=== PATIENT | female | born 1945 | race Caucasian/White ===

== ENCOUNTER 2016-08-04 11:05 | Emergency (ER) | payer MEDICARE, OTHER | END 2016-08-04 14:50 | disposition home or self-care (01) | LOC: D.ER 11:05 | DX: S49.91XA Unspecified injury of right shoulder and upper arm, initial encounter (principal); W01.0XXA Fall on same level from slipping, tripping and stumbling without subsequent striking against object, initial encounter; Y93.89 Activity, other specified; Y92.481 Parking lot as the place of occurrence of the external cause; I10 Essential (primary) hypertension ==

== ENCOUNTER → 2017-10-25 10:31 | Outpatient (CLI) | payer MEDICARE, OTHER | END | disposition home or self-care (01) | LOC: D.MAMMO 10:31 | DX: Z12.31 Encounter for screening mammogram for malignant neoplasm of breast (principal) ==

== ENCOUNTER 2019-08-26 05:07 | Inpatient (IN) | payer MEDICARE, OTHER ==
[~2019-08-26] VITALS: Ht 157.5 cm; Wt 63.5 kg
--- NOTE | ~2019-08-26 | EC ---
PATIENT:VINCENZO MOORE DATE OF SERVICE: 08/26/19 SEX: F MEDICAL RECORD: [id number] DATE OF : [birth year] LOCATION:D.MS Wing221 AGE OF PATIENT: 74 ADMISSION DATE: 08/26/19 REFERRING PHYSICIAN: INTERPRETING PHYSICIAN: SHERRI NICK MD ECHOCARDIOGRAM REPORT ECHO CHARGES 4 ECHO COMPLETE Date: 08/27/19 CLINICAL DIAGNOSIS: LVH ECHOCARDIOGRAPHIC MEASUREMENTS (adult normal given) AC root (d.<3.7cm) 3.0 cm LV Septum d (<1.2 cm> 1.0 cm Valve Excursion 1.7 cm LV Septum (systole) 1.1 cm Left Atria (s.<4.0cm> 3.8 cm LVPW d(<1.2cm) 1.1 cm RV (d.<2.3cm) 2.7 cm LVPW (sytole) 1.5 cm LV diastole(<5.6CM) 5.0 cm MV E-F(>70mm/sec) cm LV systole 3.6 cm LVOT Diameter 2.1 cm MV exc.(>10mm) cm Est.ejection fraction (50-75%) % DOPPLER: LVIT cm/sec A 113 cm/sec E 123 cm/sec LA cm/sec RVSP 33.7 mmHg LVOT 100 cm/sec AOP1/2T m/s Asc. Ao 151 cm/sec RVOT 62 cm/sec RA cm/sec PA 89 cm/sec AV Gradient Peak 9.1 mmHg AV Mean 5.5 mmHg AV Area 2.6 cm MV Gradient Peak 7.9 mmHg MV Mean 3.8 mmHg MV Area cm COMMENTS: Poultry Husbandry Teacher: Evaristo [facility] Potato Chip Frier: 1 Dr. Nick TAPE# PACS Pericardial Effusion N DATE OF SERVICE: FINDINGS: 1. Left ventricular chamber size is within normal limits. Left ventricular systolic function is lower limits of normal at 45% to 50%. 2. Left atrium, right atrium, and right ventricle chamber sizes are within normal limits. 3. Valvular structures have normal structure and motion. 4. Doppler interrogation reveals only trace tricuspid regurgitation, no other valvular insufficiency or stenosis. ECHOCARDIOGRAM REPORT [id number] VINCENZO MOORE 5. No evidence of pericardial effusion or left ventricular thrombus. TRANSINT:[id number] Voice Confirmation ID: [id number] DOCUMENT ID: [id number] SHERRI NICK MD CC: [id number] DICTATION DATE: 08/27/19 1607 STRAIGHT LINE PRESS SETTER: 08/27/19 1909 ADM IN [place] [id number] [place] [id number]
[2019-08-26] MEDS ORDERED: CRESTOR10 MG PO (05:14)
[2019-08-26] MEDS ORDERED: COREG25 MG PO (05:15)
[2019-08-26] MEDS ORDERED: NORVASC5 MG PO (05:15)
[2019-08-26] MEDS ORDERED: PROTONIX40 MG PO (05:15)
[2019-08-26 05:26] LABS: BILIRUBIN NEGATIVE (NEGATIVE); GLUCOSE NEGATIVE (NEGATIVE); KETONE NEGATIVE (NEGATIVE); NITRITE NEGATIVE (NEGATIVE); UROBILINOGEN 4 mg/dL (NORMAL)
[2019-08-26 05:28] LABS: HEMATOCRIT 33.5 % (36.0-48.0); HEMOGLOBIN 10.6 g/dL (12-16); MCH 29.4 pg (26.0-34.0); MCHC 31.6 g/dL (31.0-37.0); MCV 92.8 fL (80.0-100.0); MEAN PLATELET VOLUME 11.9 fL (7.4-10.4); PLATELET COUNT 173 10x3/uL (130-400); RBC 3.61 10x6/uL (4.00-5.40); RDW 14.3 % (11.5-14.5); WBC 8.8 10x3/uL (4.8-10.8)
[2019-08-26 05:35] LABS: CALC OSMOLALITY 282 mosm/kg (275-300); CALCIUM 8.5 mg/dL (8.5-10.1); CARBON DIOXIDE 23.2 mmol/L (21.0-32.0); CHLORIDE - SERUM 106 mmol/L (98-107); CREATININE - SERUM 1.4 mg/dL (0.6-1.3); GLUCOSE 109 mg/dL (74-106); POTASSIUM - SERUM 3.5 mmol/L (3.5-5.1); SODIUM 139 mmol/L (136-145); UREA NITROGEN 24 mg/dL (7-18); eGFR NON AFRICAN AMERICAN 39 mL/min (90-120)
[2019-08-26 05:52] LABS: ALBUMIN 2.7 g/dL (3.4-5.0); ALKALINE PHOSPHATASE 70 U/L (30-120); ALT (SGPT) 15 U/L (10-68); BILIRUBIN - TOTAL 0.58 mg/dL (0.2-1.3); CKMB 0.4 U/L (0.0-3.6); CREATINE KINASE 51 UL (21-215); TROPONIN-I < 0.017 ng/mL (0.000-0.060)
[2019-08-26 06:05] LABS: INR 1.37 (0.85-1.17); PROTIME 16.7 SECONDS (11.6-15.0)
[2019-08-26 06:29] VITALS: BP 99/50
[2019-08-26 07:09] LABS: LYMPHOCYTES 6 % (15-50); MONOCYTES 5 % (2-11); NEUTROPHILS 81 % (40-80); PLATELET ESTIMATE NORMAL
[2019-08-26 07:59] VITALS: BP 93/51; BMI 25.6
[2019-08-26 09:52] VITALS: BP 86/47
[2019-08-26 11:53] LABS: % SATURATION 4 % (15-55); IRON 7 ug/dl (35-150); TOTAL IRON BIND CAPACITY 163 ug/dl (260-445); UNSAT IRON BIND CAPACITY 156 ug/dl (150-375)
[2019-08-26 14:24] VITALS: BP 101/58
[2019-08-26 16:56] VITALS: BP 126/63
--- NOTE | 2019-08-26 19:15 | NUR ---
PATIENT ALERT AND ORIENTED TALKING ON CELL PHONE WHEN DOING BEDSIDE ROUNDING. PATIENT DENIES NEEDS AT THIS TIME. CURRENTLY WEARING 3L NC. RIGHT FOREARM IV THAT IS INFUSING NS @ 130 ML PER HOUR PER ORDER. INSTRUCTED PATIENT ON NEED OF STOOL AND SPUTUM SAMPLE. PATIENT VERBALIZES UNDERSTANDING. CALL LIGHT REMAINS IN REACH. CPOC.
[2019-08-26 20:00] VITALS: BP 103/49
--- NOTE | 2019-08-26 20:05 | NUR ---
ANSWERED PATIENT CALL LIGHT. PATIENT COMPLAINING OF HEADACHE AND RIGHT LOWER LOBE CHEST PAIN. REQUESTS TYLENOL. PROVIDED. PATIENT TOLERATED WELL. CPOC.
--- NOTE | 2019-08-26 23:00 | NUR ---
I have reviewed this patient and I concur with the Shift Assessment completed by the Licensed Practical Nurse today this shift.
--- NOTE | 2019-08-26 23:05 | NUR ---
REPLACED TELE LEADS. PATIENT BROKE SWEAT IN NIGHT AND LEADS OUT OF PLACE. REPLACED.
[2019-08-27] VITALS: BP 108/56
[2019-08-27 06:44] LABS: BASOPHILS 0.1 % (0-2); HEMATOCRIT 30.3 % (36.0-48.0); HEMOGLOBIN 9.5 g/dL (12-16); IMMATURE GRANULOCYTES 0.3 % (0-5); LYMPHOCYTES 13.1 % (15-50); MCH 29.4 pg (26.0-34.0); MCHC 31.4 g/dL (31.0-37.0); MCV 93.8 fL (80.0-100.0); MEAN PLATELET VOLUME 12.2 fL (7.4-10.4); MONOCYTES 12.9 % (2-11); NEUTROPHILS 71.6 % (40-80); PLATELET COUNT 175 10x3/uL (130-400); RBC 3.23 10x6/uL (4.00-5.40); RDW 14.7 % (11.5-14.5); WBC 7.5 10x3/uL (4.8-10.8)
[2019-08-27 06:58] LABS: ANION GAP 11.4 mmol/L (8-16); CALCIUM 8.7 mg/dL (8.5-10.1); CREATININE - SERUM 0.9 mg/dL (0.6-1.3); POTASSIUM - SERUM 3.4 mmol/L (3.5-5.1)
[2019-08-27 08:38] VITALS: BP 125/77
--- NOTE | 2019-08-27 08:50 | NUR ---
STILL COUGHING UP THICK SPUTUM, 3 LITERS NC. C/O OF LITTLE PAIN TO THE LEFT ABD SIDE. ASKING ABOUT STARTING HER HOME MEDS?
[2019-08-27 12:33] VITALS: BP 129/73
[2019-08-27 12:40] LABS: CKMB 0.3 U/L (0.0-3.6); CREATINE KINASE 47 UL (21-215)
[2019-08-27 12:41] LABS: TROPONIN-I < 0.017 ng/mL (0.000-0.060)
[2019-08-27 17:07] VITALS: BP 121/64
--- NOTE | 2019-08-27 17:58 | NUR ---
SHE IS STILL HAVING PAIN TO THE LEFT SIDE OF CHEST. SHE IS COUGHING ALOT. SHE IS TAKING TYLENOL FOR PAIN.
[2019-08-27 19:04] LABS: CKMB 0.8 U/L (0.0-3.6); CREATINE KINASE 45 UL (21-215)
[2019-08-27 19:05] LABS: TROPONIN-I < 0.017 ng/mL (0.000-0.060)
[2019-08-27 20:00] VITALS: BP 125/70
[2019-08-27 23:46] LABS: CKMB 0.6 U/L (0.0-3.6); CREATINE KINASE 45 UL (21-215); TROPONIN-I < 0.017 ng/mL (0.000-0.060)
[2019-08-28] VITALS: BP 109/66; BP 135/77
--- NOTE | 2019-08-28 01:50 | NUR ---
I have reviewed this patient and I concur with the Shift Assessment completed by the Licensed Practical Nurse today this shift.
[2019-08-28 04:00] VITALS: BP 140/80
[2019-08-28 05:28] LABS: CALCIUM 8.4 mg/dL (8.5-10.1); CREATININE - SERUM 0.8 mg/dL (0.6-1.3)
[2019-08-28 06:12] LABS: HEMATOCRIT 30.4 % (36.0-48.0); HEMOGLOBIN 9.3 g/dL (12-16); MCH 29.3 pg (26.0-34.0); MCHC 30.6 g/dL (31.0-37.0); PLATELET COUNT 186 10x3/uL (130-400); RBC 3.17 10x6/uL (4.00-5.40); RDW 15.4 % (11.5-14.5); WBC 7.8 10x3/uL (4.8-10.8)
[2019-08-28 06:14] LABS: MCV 95.9 fL (80.0-100.0)
--- NOTE | 2019-08-28 08:38 | NUR ---
PATIENT IS SETTING UP IN THE CHAIR TO EAT. C/O OF PAIN IN HER LEFT SIDE AREA. PRN TYLENOL GIVEN. WEARING OXYGEN AT 3 LITERS. REMINDERED HER THAT WE NEED A STOOL SPECIMEN.
[2019-08-28 08:47] LABS: EOSINOPHILS 1 % (0-7); LYMPHOCYTES 15 % (15-50); MONOCYTES 5 % (2-11); NEUTROPHILS 69 % (40-80)
[2019-08-28 08:49] LABS: PLATELET ESTIMATE NORMAL
[2019-08-28 08:56] VITALS: BP 154/87
[2019-08-28 13:01] VITALS: Ht 157.5 cm; Wt 63.5 kg
[2019-08-28 13:24] VITALS: BP 140/79
[2019-08-28 17:28] VITALS: BP 157/82
--- NOTE | 2019-08-28 19:45 | NUR ---
A&O X 4. AMBULATES AD EL. FAMILY AT BEDSIDE. REPORTS MILD PAIN 2-3/10 PAIN TO CHEST/BACK. CONTINUE PLAN OF CARE.
[2019-08-28 20:00] VITALS: BP 125/69
[2019-08-29 04:00] VITALS: BP 170/95
--- NOTE | 2019-08-29 05:43 | NUR ---
I have reviewed this patient and I concur with the Shift Assessment completed by the Licensed Practical Nurse today this shift.
[2019-08-29 05:55] LABS: BASOPHILS 0.1 % (0-2); EOSINOPHILS 2.6 % (0-7); HEMATOCRIT 32.1 % (36.0-48.0); HEMOGLOBIN 9.9 g/dL (12-16); IMMATURE GRANULOCYTES 0.4 % (0-5); LYMPHOCYTES 8.2 % (15-50); MCH 28.4 pg (26.0-34.0); MCHC 30.8 g/dL (31.0-37.0); MEAN PLATELET VOLUME 11.7 fL (7.4-10.4); MONOCYTES 9.2 % (2-11); NEUTROPHILS 79.5 % (40-80); RBC 3.48 10x6/uL (4.00-5.40); RDW 14.8 % (11.5-14.5); WBC 9.5 10x3/uL (4.8-10.8)
[2019-08-29 06:19] LABS: MCV 92.2 fL (80.0-100.0); PLATELET COUNT 234 10x3/uL (130-400)
[2019-08-29 06:34] LABS: ANION GAP 15.9 mmol/L (8-16); CARBON DIOXIDE 21.7 mmol/L (21.0-32.0); CREATININE - SERUM 0.8 mg/dL (0.6-1.3); POTASSIUM - SERUM 3.6 mmol/L (3.5-5.1)
[2019-08-29 06:48] LABS: CALCIUM 8.9 mg/dL (8.5-10.1)
--- NOTE | 2019-08-29 08:14 | NUR ---
PATIENT RECIEVED FROM PREVIOUS SHIFT RESTING WITH EYES CLOSED, AROUSES EASILY, ALERT AND ORIENTED. RESPIRTATIONS REGULAR AND NON-LABORED, 02 3L NC, CL IN REACH
[2019-08-29 10:07] VITALS: BP 159/86
--- NOTE | 2019-08-29 13:22 | MORECARE ---
CASE MANAGEMENT DISCHARGE SUMMARY PATIENT: VINCENZO MOORE UNIT: [id number] ADM DATE: 08/26/19 AGE: 74 : 46 SEX: F ROOM/BED: D.2210 AUTHOR: CHAYA BRADLEY PHYSICIAN: REFERRING PHYSICIAN: SHELTON MACK MD DATE OF SERVICE: 08/29/19 Discharge Plan Patient Name: VINCENZO MOORE [facility] [facility] 1945 Planned Disposition: Home or Self Care Anticipated Discharge Date: Discharge Date: Expected LOS: Initial Reviewer: [email or web address] Initial Review Date: 08/26/2019 Generated: 08/29/19 2:21 pm DCPIA - Discharge Planning Initial Assessment Updated by [email or web address]: Nadia Lloyd on 08/29/19 1:21 pm * Is the patient Alert and Oriented? Yes * How many steps to enter\exit or inside your home? * PCP DEMETRIUS * Pharmacy [address] * Preadmission Environment Home with Family * ADLs Independent * Equipment None * List name and contact numbers for known caregivers / representatives who currently or will assist patient after discharge: MATTHIAS MOORE [phone] * Verbal permission to speak to the caregivers and representatives has been obtained from the patient. N/A * Community resources currently utilized None * Additional services required to return to the preadmission environment? No * Can the patient safely return to the preadmission environment? Yes * Has this patient been hospitalized within the prior 30 days at any hospital? No Patient Name: VINCENZO MOORE Page [phone] at 1322 All edits/amendments must be made on the electronic document DICTATION DATE: 08/29/19 1321 BRAND COORDINATOR: LAURY 08/29/19 1321 RPT#: [id number] DC DATE: STATUS: ADM IN [facility] [address] [place] [address] END OF REPORT
--- NOTE | 2019-08-29 13:31 | MORECARE ---
CASE MANAGEMENT DISCHARGE SUMMARY PATIENT: VINCENZO MOORE UNIT: [id number] ADM DATE: 08/26/19 AGE: 74 : 46 SEX: F ROOM/BED: D.2210 AUTHOR: MIRNADOC PHYSICIAN: REFERRING PHYSICIAN: SHELTON MACK MD DATE OF SERVICE: 08/29/19 Discharge Plan Patient Name: VINCENZO MOORE Facility: [facility]:[place] : 1945 Planned Disposition: Home or Self Care Anticipated Discharge Date: Discharge Date: Expected LOS: Initial Reviewer: [email or web address] Initial Review Date: 08/26/2019 Generated: 08/29/19 2:31 pm Comments DCP- Discharge Planning Updated by [email or web address]: Nadia Lloyd on 08/29/19 12:[address] Patient Name: VINCENZO MOORE Admission Status: ER Accout number: [id number] Admission Date: 08-26-2019 : 1945 Admission Diagnosis: Attending: SHIVAM MACK Current LOS: 3 Anticipated DC Date: Planned Disposition: Home or Self Care Primary Insurance: MEDICARE A & B Discharge Planning Comments: CM met with patient to complete initial dc planning assessment. CM educated patient on the CM role and verbal consent given by patient to complete assessment. Patient lives at home with her where she is independent with her care. At discharge patient plans to return home and feels this is a safe discharge. One of her family members will be her cement truck driver home at discharge. CM discussed availability of home health, rehab services, and medical equipment. Patient denied known discharge needs at this time. CM will continue to follow and will assist as needed with dc plans/needs. Inspector Missile: Nadia Lloyd DCPIA - Discharge Planning Initial Assessment Updated by [email or web address]: Nadia Lloyd on 08/29/19 1:21 pm * Is the patient Alert and Oriented? Yes * How many steps to enter\exit or inside your home? * PCP DEMETRIUS * Pharmacy [address] * Preadmission Environment Home with Family * ADLs Independent * Equipment None * List name and contact numbers for known caregivers / representatives who currently or will assist patient after discharge: MATTHIAS MOORE [phone] * Verbal permission to speak to the caregivers and representatives has been obtained from the patient. N/A * Community resources currently utilized None * Additional services required to return to the preadmission environment? No * Can the patient safely return to the preadmission environment? Yes * Has this patient been hospitalized within the prior 30 days at any hospital? No Last DP export: 08/29/19 12:22 p Patient Name: VINCENZO MOORE Page [phone] at 1331 All edits/amendments must be made on the electronic document DICTATION DATE: 08/29/191330 FERMENTING CELLARS SUPERVISOR: LAURY 08/29/191330 RPT#: [id number] DC DATE: STATUS: ADM IN [facility] [address] [place] [address] END OF REPORT
[2019-08-29 14:39] VITALS: BP 148/90
[2019-08-29 17:25] VITALS: BP 158/94
--- NOTE | 2019-08-29 18:55 | NUR ---
PATIENT RESTING WITH NO NEEDS VOICED, CL IN REACH
--- NOTE | 2019-08-29 19:40 | NUR ---
SUPINE IN BED, A&O X 4. FAMILY AT BEDSIDE. 3L O2 IN USE. DENIES PAIN/DISCOMFORT/NEEDS AT THIS TIME, WILL CONTINUE TO MONITOR.
[2019-08-29 21:28] VITALS: BP 149/93
[2019-08-30 01:59] VITALS: BP 151/83
[2019-08-30 04:41] LABS: BASOPHILS 0.1 % (0-2); EOSINOPHILS 2.7 % (0-7); HEMATOCRIT 32.8 % (36.0-48.0); HEMOGLOBIN 10.3 g/dL (12-16); IMMATURE GRANULOCYTES 0.3 % (0-5); LYMPHOCYTES 14.1 % (15-50); MCH 28.8 pg (26.0-34.0); MCHC 31.4 g/dL (31.0-37.0); MCV 91.6 fL (80.0-100.0); MEAN PLATELET VOLUME 10.4 fL (7.4-10.4); NEUTROPHILS 71.8 % (40-80); PLATELET COUNT 279 10x3/uL (130-400); RBC 3.58 10x6/uL (4.00-5.40); RDW 14.7 % (11.5-14.5); WBC 7.1 10x3/uL (4.8-10.8)
[2019-08-30 04:52] LABS: CALC OSMOLALITY 275 mosm/kg (275-300); CALCIUM 9.1 mg/dL (8.5-10.1); CARBON DIOXIDE 25.4 mmol/L (21.0-32.0); CHLORIDE - SERUM 104 mmol/L (98-107); CREATININE - SERUM 0.6 mg/dL (0.6-1.3); GLUCOSE 84 mg/dL (74-106); POTASSIUM - SERUM 3.5 mmol/L (3.5-5.1); SODIUM 140 mmol/L (136-145); UREA NITROGEN 6 mg/dL (7-18); eGFR NON AFRICAN AMERICAN > 90 mL/min (90-120)
--- NOTE | 2019-08-30 05:11 | NUR ---
I have reviewed this patient and I concur with the Shift Assessment completed by the Licensed Practical Nurse today this shift.
[2019-08-30 06:04] VITALS: BP 130/66
[2019-08-30 08:00] VITALS: BP 169/91
--- NOTE | 2019-08-30 08:00 | NUR ---
ASSESSMENT PER FLOW SHEET. PT IS WITHOUT DISTRESS.FAMILY AT BEDSIDE.CALL LIGHT IN REACH.
--- NOTE | 2019-08-30 08:14 | NUR ---
STOOL TO LAB ORDERED
[2019-08-30 10:00] LABS: MAGNESIUM - SERUM 1.9 mg/dL (1.8-2.4); POTASSIUM - SERUM 3.7 mmol/L (3.5-5.1)
[2019-08-30 12:00] VITALS: BP 145/74
--- NOTE | 2019-08-30 13:06 | NUR ---
NUTRITION F/U CHART REVIEWED, PT VISIT. TOLERATING AHA DIET WITH 50% INTAKE RECENT MEALS. WILL CONTINUE TO PROVIDE DIET, MONITOR PO INTAKE. RD FOLLOWING
[2019-08-30 17:09] VITALS: BP 145/80
--- NOTE | 2019-08-30 19:30 | NUR ---
A&O X 4. REPORTS PAIN 12/28. DENIES N/V/D. NO NEEDS AT THIS TIME. REMOVED PT FROM IV AND MONITOR FOR SHOWER. WILL CONTINUE TO MONITOR.
--- NOTE | 2019-08-30 19:45 | NUR ---
A&O X 4. SUPINE IN BED, STATES SHE IS FEELING MUCH BETTER TODAY. STILL UNABLE TO PRODUCE SPUTUM. DENIES PAIN CURRENTLY, BUT REPORTS SORE/ACHING FEELING IN HER BACK AND CHEST AND SHOULDERS. WILL CONTINUE TO MONITOR.
[2019-08-30 21:09] VITALS: BP 135/70
[2019-08-31] VITALS (7 sets, daily range): BP systolic 146–167; BP diastolic 67–93
[2019-08-31 06:21] LABS: BASOPHILS 0.2 % (0-2); EOSINOPHILS 3.8 % (0-7); HEMATOCRIT 32.5 % (36.0-48.0); HEMOGLOBIN 10.3 g/dL (12-16); IMMATURE GRANULOCYTES 0.5 % (0-5); MCH 28.9 pg (26.0-34.0); MCHC 31.7 g/dL (31.0-37.0); MCV 91.3 fL (80.0-100.0); MEAN PLATELET VOLUME 10.5 fL (7.4-10.4); MONOCYTES 7.8 % (2-11); NEUTROPHILS 70.7 % (40-80); PLATELET COUNT 314 10x3/uL (130-400); RBC 3.56 10x6/uL (4.00-5.40); RDW 14.7 % (11.5-14.5); WBC 6.3 10x3/uL (4.8-10.8)
[2019-08-31 06:45] LABS: CALC OSMOLALITY 276 mosm/kg (275-300); CALCIUM 9.3 mg/dL (8.5-10.1); CARBON DIOXIDE 30.2 mmol/L (21.0-32.0); CHLORIDE - SERUM 104 mmol/L (98-107); CREATININE - SERUM 0.7 mg/dL (0.6-1.3); GLUCOSE 100 mg/dL (74-106); POTASSIUM - SERUM 3.6 mmol/L (3.5-5.1); PRO BNP 3389 pg/mL (0-125); SODIUM 140 mmol/L (136-145); eGFR NON AFRICAN AMERICAN 87 mL/min (90-120)
[2019-08-31 06:46] LABS: UREA NITROGEN 8 mg/dL (7-18)
--- NOTE | 2019-08-31 08:00 | NUR ---
ASSESSMENT PER FLOW SHEET. PT IS WITHOUT DISTRESS.MONITOR FOR NEEDSD
--- NOTE | 2019-08-31 18:00 | NUR ---
IV RESITED TO RIGHT FOREARM. IV X2 DCD WITH CATH TIP INTACT.2 PREVIOUS IV WOULD NOT FLUSH
--- NOTE | 2019-08-31 19:55 | NUR ---
SITTING UP IN CHAIR TALKING TO FAMILY. ALERT AND ORIENTED X4. TELEMETRY SHOWS SR WITH RATE OF 81. RESP IRREG, SOB WITH MIN EXERTION. NONPROD COUGH NOTED. O2 @ 2L/NC. AMBULATORY. REPORTS BACK PAIN AND H/A. SALINE LOCK NOTED TO RT FOREARM. NO EDEMA NOTED. NO DISTRESS. CL IN REACH.
--- NOTE | 2019-09-01 01:55 | NUR ---
LYING IN BED WITH EYES CLOSED. RESP EVEN AND NONLABORED. NO DISTRESS. CL INR EACH. HAS RESTED WELL SO FAR THIS SHIFT.
[2019-09-01 04:00] VITALS: BP 149/78
[2019-09-01 04:45] LABS: BASOPHILS 0.3 % (0-2); EOSINOPHILS 3.4 % (0-7); HEMATOCRIT 34.3 % (36.0-48.0); HEMOGLOBIN 10.9 g/dL (12-16); IMMATURE GRANULOCYTES 0.6 % (0-5); LYMPHOCYTES 22.7 % (15-50); MCH 29.1 pg (26.0-34.0); MCHC 31.8 g/dL (31.0-37.0); MCV 91.5 fL (80.0-100.0); MEAN PLATELET VOLUME 10.1 fL (7.4-10.4); PLATELET COUNT 358 10x3/uL (130-400); RBC 3.75 10x6/uL (4.00-5.40); RDW 14.7 % (11.5-14.5); WBC 6.5 10x3/uL (4.8-10.8)
[2019-09-01 05:06] LABS: ANION GAP 9.8 mmol/L (8-16); CALCIUM 9.2 mg/dL (8.5-10.1); CARBON DIOXIDE 30.9 mmol/L (21.0-32.0); CREATININE - SERUM 0.8 mg/dL (0.6-1.3); POTASSIUM - SERUM 3.7 mmol/L (3.5-5.1)
--- NOTE | 2019-09-01 07:21 | NUR ---
PT IS RESTING IN BED WITH EYES OPEN. RESPIRATIONS ARE EVEN AND UNLABORED. O2 @ 2L VIA NC. PT DENIES PRESENCE OF DYSPNEA AT THIS TIME BUT REPORTS SOB WITH MINIMAL EXERTION. INCENTIVE SPIROMETER AT BEDSIDE. APPROPRIATE RETURN DEMONSTRATION NOTED. PT IS AAO X 4. PT REPORTS A FREQUENT DRY COUGH. BED IS IN THE LOWEST POSITION. CALL LIGHT AND BEDSIDE TABLE ARE WITHIN REACH. SIDE RAILS X 2. PT DENIES FURTHER NEEDS AT THIS TIME. WILL CONT TO MONITOR.
[2019-09-01 08:57] VITALS: BP 144/81
--- NOTE | 2019-09-01 10:05 | NUR ---
DR BENAVIDES AT BEDSIDE. VERBAL ORDERS TO WEAN PT OFF O2. PT REMOVED NC AND WILL CHECK O2 SAT PERIODICALLY. DR BENAVIDES STATES FOR PT O2 SAT TO REMAIN 92% OR >.
--- NOTE | 2019-09-01 10:35 | NUR ---
PT O2 SAT @ 91% RA. PT ENCOURAGED TO COUGH AND DEEP BREATH. O2 SAT INCREASED TO 94% ON RA.
--- NOTE | 2019-09-01 11:05 | NUR ---
PT O2 SAT @ 89% ON ROOM AIR. PT ENCOURAGED TO DEEP BREATH AND COUGH. INCENTIVE AT BEDSIDE. PT O2 PLACED ON AT 1L VIA NC. O2 SAT @ 93%. WILL CONT TO ATTEMPT O2 WEANING.
[2019-09-01 12:48] VITALS: BP 145/74
[2019-09-01 13:48] VITALS: BP 151/90
[2019-09-01 20:00] VITALS: BP 126/64
[2019-09-02] VITALS: BP 107/73; BP 140/76
[2019-09-02 04:00] VITALS: BP 153/85
[2019-09-02 06:11] LABS: BASOPHILS 0.3 % (0-2); EOSINOPHILS 2.9 % (0-7); HEMATOCRIT 33.1 % (36.0-48.0); HEMOGLOBIN 10.5 g/dL (12-16); IMMATURE GRANULOCYTES 0.2 % (0-5); LYMPHOCYTES 20.8 % (15-50); MCH 28.9 pg (26.0-34.0); MCHC 31.7 g/dL (31.0-37.0); MCV 91.2 fL (80.0-100.0); MEAN PLATELET VOLUME 9.8 fL (7.4-10.4); MONOCYTES 6.8 % (2-11); PLATELET COUNT 357 10x3/uL (130-400); RBC 3.63 10x6/uL (4.00-5.40); RDW 14.5 % (11.5-14.5); WBC 6.3 10x3/uL (4.8-10.8)
[2019-09-02 06:23] LABS: CALC OSMOLALITY 278 mosm/kg (275-300); CALCIUM 8.9 mg/dL (8.5-10.1); CARBON DIOXIDE 30.8 mmol/L (21.0-32.0); CHLORIDE - SERUM 103 mmol/L (98-107); CREATININE - SERUM 0.7 mg/dL (0.6-1.3); GLUCOSE 101 mg/dL (74-106); POTASSIUM - SERUM 3.8 mmol/L (3.5-5.1); SODIUM 141 mmol/L (136-145); UREA NITROGEN 7 mg/dL (7-18); eGFR NON AFRICAN AMERICAN 87 mL/min (90-120)
--- NOTE | 2019-09-02 08:00 | NUR ---
PT RESTING IN BED WITH EYES CLOSED, EASILY AROUSED TO SPEECH. IV LOCATED TO RIGHT FOREARM RUNNING NS @ 10ML/HR. CURRENTLY RCVING 1L VIA NC. NO S/S OF DISTRESS AT THIS TIME, DENIES NEEDS, WILL CONT TO MONITOR.
[2019-09-02 08:29] VITALS: BP 125/67
[2019-09-02 12:47] VITALS: BP 124/61
[2019-09-02] MEDS ORDERED: PROAIR HFA8.5 G1 INH (14:27)
--- NOTE | 2019-09-02 15:09 | MORECARE ---
CASE MANAGEMENT DISCHARGE SUMMARY PATIENT: VINCENZO MOORE UNIT: [id number] ADM DATE: 08/26/19 AGE: 74 : 46 SEX: F ROOM/BED: D.2210 AUTHOR: CHAYA BRADLEY PHYSICIAN: REFERRING PHYSICIAN: SHELTON MACK MD DATE OF SERVICE: 09/02/19 Discharge Plan Patient Name: VINCENZO MOORE Facility: [facility]:[place] : 1945 Planned Disposition: Home or Self Care Anticipated Discharge Date: Discharge Date: Expected LOS: Initial Reviewer: [email or web address] Initial Review Date: 08/26/2019 Generated: 09/02/19 4:09 pm Comments DCP- Discharge Planning Updated by [email or web address]: Camille Paez on 09/02/19 2:[address] Patient Name: VINCENZO MOORE Encounter No: [id number] : 1945 Primary Insurance: MEDICARE A & B Anticipated DC Date: Planned Disposition: Home or Self Care External Planned Provider: : DCP follow-up note: Patient and family in agreement with discharge plan. No changes to plan. PATIENT HAS BEEN OFF O2 ALL DAY AND AMBULATING WITHOUT DIFFICULTY. DEBORA SIGNED FOR AVRIL BECKMAN IF NEEDED. IMM SIGNED. PATIENT'S FAMILY TO BE HERE TODAY AND PLANS FOR DC TO HOME. Case management will follow and assist as needed. Camille Paez DCP- Discharge Planning Updated by [email or web address]: Nadia Lloyd on 08/29/19 12:[address] Patient Name: VINCENZO MOORE Admission Status: ER Accout number: [id number] Admission Date: 08-26-2019 : 1945 Admission Diagnosis: Attending: SHIVAM MACK Current LOS: 3 Anticipated DC Date: Planned Disposition: Home or Self Care Primary Insurance: MEDICARE A & B Discharge Planning Comments: CM met with patient to complete initial dc planning assessment. CM educated patient on the CM role and verbal consent given by patient to complete assessment. Patient lives at home with her where she is independent with her care. At discharge patient plans to return home and feels this is a safe discharge. One of her family members will be her reefer truck driver home at discharge. CM discussed availability of home health, rehab services, and medical equipment. Patient denied known discharge needs at this time. CM will continue to follow and will assist as needed with dc plans/needs. Cistern Room Working Supervisor: Nadia Lloyd DCPIA - Discharge Planning Initial Assessment Updated by [email or web address]: Nadia Lloyd on 08/29/19 1:21 pm * Is the patient Alert and Oriented? Yes * How many steps to enter\exit or inside your home? * PCP DEMETRIUS * Pharmacy [address] * Preadmission Environment Home with Family * ADLs Independent * Equipment None * List name and contact numbers for known caregivers / representatives who currently or will assist patient after discharge: MATTHIAS MOORE [phone] * Verbal permission to speak to the caregivers and representatives has been obtained from the patient. N/A * Community resources currently utilized None * Additional services required to return to the preadmission environment? No * Can the patient safely return to the preadmission environment? Yes * Has this patient been hospitalized within the prior 30 days at any hospital? No Coverage Notice Reviewer: [email or web address] Dean Paez Notice Issued Date-Time: 09/02/2019 15:04 Notice Type: IM Discharge Notice Notice Delivered To: Patient Relationship to Patient: Emt/Paramedic Name: Delivery Method: HAND - Hand Delivered Jenifer Days: Prior Verbal Notification: Recipient Understood Notice: Yes Recipient Signature: Yes Med Rec Note Co-signed by Attending: Coverage Notice Comment: Reviewer: [email or web address] Paez Notice Issued Date-Time: 09/02/2019 15:04 Notice Type: Patient Choice Letter Notice Delivered To: Relationship to Patient: Emt/Paramedic Name: Delivery Method: HAND - Hand Delivered Jenifer Days: Prior Verbal Notification: Recipient Understood Notice: Yes Recipient Signature: Yes Med Rec Note Co-signed by Attending: Coverage Notice Comment: DEBORA BECKMAN IF NEEDED. Last DP export: 08/29/19 12:31 p Patient Name: VINCENZO MOORE Page [phone] at 1509 All edits/amendments must be made on the electronic document DICTATION DATE: 09/02/19 1509 PLASTICS AND COMPOSITES INSPECTOR: LAURY 09/02/19 1509 RPT#: [id number] DC DATE: STATUS: ADM IN [facility] [address] [place] [address] END OF REPORT
--- NOTE | 2019-09-02 16:29 | NUR ---
PT DC`D HOME VIA WHEELCHAIR AND FAMILY.
--- NOTE | 2019-09-03 17:07 | MORECARE ---
CASE MANAGEMENT DISCHARGE SUMMARY PATIENT: VINCENZO MOORE UNIT: [id number] ADM DATE: 08/26/19 AGE: 74 : 46 SEX: F ROOM/BED: D.2210 AUTHOR: CHAYA BRADLEY PHYSICIAN: REFERRING PHYSICIAN: SHELTON MACK MD DATE OF SERVICE: 09/03/19 Discharge Plan Patient Name: VINCENZO MOORE Facility: [facility]:[place] : 1945 Planned Disposition: Home or Self Care Anticipated Discharge Date: Discharge Date: 09/02/2019 Expected LOS: Initial Reviewer: [email or web address] Initial Review Date: 08/26/2019 Generated: 09/03/19 6:07 pm Comments DCP- Discharge Planning Updated by [email or web address]: Camille Paez on 09/02/19 2:[address] Patient Name: VINCENZO MOORE Encounter No: [id number] : 1945 Primary Insurance: MEDICARE A & B Anticipated DC Date: Planned Disposition: Home or Self Care External Planned Provider: : DCP follow-up note: Patient and family in agreement with discharge plan. No changes to plan. PATIENT HAS BEEN OFF O2 ALL DAY AND AMBULATING WITHOUT DIFFICULTY. DEBORA SIGNED FOR AVRIL BECKMAN IF NEEDED. IMM SIGNED. PATIENT'S FAMILY TO BE HERE TODAY AND PLANS FOR DC TO HOME. Case management will follow and assist as needed. Camille Paez DCP- Discharge Planning Updated by [email or web address]: Nadia Lloyd on 08/29/19 12:[address] Patient Name: VINCENZO MOORE Admission Status: ER Accout number: [id number] Admission Date: 08-26-2019 : 1945 Admission Diagnosis: Attending: SHIVAM MACK Current LOS: 3 Anticipated DC Date: Planned Disposition: Home or Self Care Primary Insurance: MEDICARE A & B Discharge Planning Comments: CM met with patient to complete initial dc planning assessment. CM educated patient on the CM role and verbal consent given by patient to complete assessment. Patient lives at home with her where she is independent with her care. At discharge patient plans to return home and feels this is a safe discharge. One of her family members will be her funeral car driver home at discharge. CM discussed availability of home health, rehab services, and medical equipment. Patient denied known discharge needs at this time. CM will continue to follow and will assist as needed with dc plans/needs. Anesthesiologist Assistant Certified: Nadia Lloyd DCPIA - Discharge Planning Initial Assessment Updated by [email or web address]: Nadia Lloyd on 08/29/19 1:21 pm * Is the patient Alert and Oriented? Yes * How many steps to enter\exit or inside your home? * PCP DEMETRIUS * Pharmacy [address] * Preadmission Environment Home with Family * ADLs Independent * Equipment None * List name and contact numbers for known caregivers / representatives who currently or will assist patient after discharge: MATTHIAS MOORE [phone] * Verbal permission to speak to the caregivers and representatives has been obtained from the patient. N/A * Community resources currently utilized None * Additional services required to return to the preadmission environment? No * Can the patient safely return to the preadmission environment? Yes * Has this patient been hospitalized within the prior 30 days at any hospital? No Coverage Notice Reviewer: [email or web address] Dean Paez Notice Issued Date-Time: 09/02/2019 15:04 Notice Type: IM Discharge Notice Notice Delivered To: Patient Relationship to Patient: Wrapper Caser Name: Delivery Method: HAND - Hand Delivered Jenifer Days: Prior Verbal Notification: Recipient Understood Notice: Yes Recipient Signature: Yes Med Rec Note Co-signed by Attending: Coverage Notice Comment: Reviewer: [email or web address] Paez Notice Issued Date-Time: 09/02/2019 15:04 Notice Type: Patient Choice Letter Notice Delivered To: Relationship to Patient: Wrapper Caser Name: Delivery Method: HAND - Hand Delivered Jenifer Days: Prior Verbal Notification: Recipient Understood Notice: Yes Recipient Signature: Yes Med Rec Note Co-signed by Attending: Coverage Notice Comment: DEBORA AVRIL LINCARE IF NEEDED. Last DP export: 09/02/19 2:09 p Patient Name: VINCENZO MOORE Page [phone] at 1707 All edits/amendments must be made on the electronic document DICTATION DATE: 09/03/191706 SILK SOAKER: LAURY 09/03/191706 RPT#: [id number] DC DATE:09/02/19 STATUS: DIS IN [place] [id number] [place] [address] END OF REPORT
[2019-09-04 14:09] LABS: SPECIMEN SOURCE Urine (())
== END 2019-09-02 16:29 | disposition home or self-care (01) | DRG 871 ==
LOC: D.ER 05:07 → D.MS 06:19
PROVIDERS: Family Medicine; Internal Medicine Pulmonary Disease; ADMIT Emergency Medicine; ATTEND Emergency Medicine
DX: A41.9 Sepsis, unspecified organism (principal); J18.9 Pneumonia, unspecified organism; J96.01 Acute respiratory failure with hypoxia; I50.23 Acute on chronic systolic (congestive) heart failure; N17.9 Acute kidney failure, unspecified; D64.9 Anemia, unspecified; I11.0 Hypertensive heart disease with heart failure; K21.9 Gastro-esophageal reflux disease without esophagitis; K44.9 Diaphragmatic hernia without obstruction or gangrene